=== PATIENT | male | born 1995 | race Asian ===

== ENCOUNTER 2019-03-25 23:59 | Emergency (ER) | payer OTHER ==
--- NOTE | 2019-03-26 02:05 | ED ---
Laceration/Wound HPI - HPI Summary HPI Summary: 23-year-old right hand dominant male with no significant past medical history reports the emergency department today after lacerating his right pointer finger on a knife. He endorses 2 out of 10 pain at the point the laceration. Laceration measures 2 cm in length by 3 mm in depth. He states he is up-to- date with his tetanus immunizations. He has full range of motion in his upper extremities bilaterally and is neurovascularly intact. Patient denies anticoagulation or bleeding disorders. Patient denies fever, chest pain, abdominal pain, shortness of breath accompanied urination, rash. - History of Current Complaint Stated Complaint: R POINTER LAC PER PT Time Seen by Provider: 03/26/19 01:45 Hx Obtained From: Patient Mechanism of Injury: Sharp/Blunt Trauma Onset/Duration: Sudden Onset Aggravating: Movement Timing: Constant Onset Severity: Moderate Current Severity: Moderate Pain Intensity: 6 Pain Scale Used: 0-10 Numeric Associated Signs & Symptoms: Pain - Allergy/Home Medications Allergies/Adverse Reactions: Allergies Allergy/AdvReac Type Severity Reaction Status Date / Time No Known Allergies Allergy Verified 03/26/19 00:07 PMH/Surg Hx/FS Hx/Imm Hx - Immunization History Immunizations Up to Date: Yes Infectious Disease History: No Infectious Disease History: Denies: Traveled Outside the [place] in Last 30 Days - Social History Alcohol Use: Rare Substance Use Type: Reports: None Smoking Status (MU): Never Smoked Tobacco Review of Systems Constitutional: Negative Eyes: Negative ENT: Negative Cardiovascular: Negative Respiratory: Negative Gastrointestinal: Negative Genitourinary: Negative Musculoskeletal: Negative Skin: Negative Neurological: Negative Psychological: Normal All Other Systems Reviewed And Are Negative: Yes Physical Exam - Summary Physical Exam Summary: Right upper extremities is neurovascularly intact and full range of motion. Radial pulses 2+ bilaterally with brisk capillary refill. Laceration is minor amount of bleeding. No evidence of foreign body. Wound is clean. Triage Information Reviewed: Yes Vital Signs On Initial Exam: Initial Vitals Temp Pulse Resp BP Pulse Ox 98.4 F 72 16 138/86 99 03/26/19 00:00 03/26/19 00:00 03/26/19 00:00 03/26/19 00:00 03/26/19 00:00 Vital Signs Reviewed: Yes Appearance: Positive: Well-Appearing, No Pain Distress, Well-Nourished Skin: Positive: Warm, Skin Color Reflects Adequate Perfusion Head/Face: Positive: Normal Head/Face Inspection Eyes: Positive: Normal, EOMI, [place] ENT: Positive: Hearing grossly normal Respiratory/Lung Sounds: Positive: Clear to Auscultation, Breath Sounds Present Cardiovascular: Positive: RRR, S1, S2 Abdomen Description: Positive: Nontender, Soft Bowel Sounds: Positive: Present Musculoskeletal: Positive: Strength/ROM Intact Neurological: Positive: Sensory/Motor Intact, Alert, Oriented to Person Place, Time, Normal Gait, Speech Normal Psychiatric: Positive: Normal AVPU Assessment: Alert Procedures - Sedation Patient Received Moderate/Deep Sedation with Procedure: No - Laceration/Wound Repair 1 Location: upper extremity Description: Linear Anesthesia: Local, 1.0% Length, Depth and Shape: 2 cm in length x 3 mm deep Betadine Prep?: No Irrigated w/ Saline (ccs): 200 Laceration/Wound Explored: clean, no foreign body removed Closure: Single Layer Suture Type: Nylon Number of Sutures: 2 - simple interrupted 4-0 nylon Layer Closure?: No Sterile Dressing Applied?: Yes Diagnostics - Vital Signs Vital Signs Temp Pulse Resp BP Pulse Ox 03/26/19 00:00 98.4 F 72 16 138/86 99 - Laboratory Lab Statement: Any lab studies that have been ordered have been reviewed, and results considered in the medical decision making process. Laceration Repair Course/Dx - Course Course Of Treatment: Patient was evaluated emergency department for right finger laceration measuring 2 cm in length by 3 mm in depth. His vital signs are stable and he is afebrile. He was neurovascularly intact and full range of motion in up-to-date with tetanus vaccination. Laceration repair was done using 3 cc of 1% lidocaine without epinephrine using local technique. Laceration was approximated using 2 simple interrupted sutures with 4-0 nylon. Patient tolerated procedure well with minimal blood loss. Dressing was applied to the wound and patient was placed in a splint and given instructions on how to care for his stitches and when to have them removed. Patient was told to return to the emergency department immediately if he developed any new or worsening symptoms - Differential Dx Differental Diagnoses: Abrasion, Avulsion, Foreign Body, Fracture, Laceration, Tendon Laceration - Clinical Impression Provider Diagnoses: Laceration of right index finger Discharge ED - Sign-Out/Discharge Documenting (check all that apply): Patient Departure - Discharge Plan Condition: Stable Disposition: HOME Patient Education Materials: Care For Your Stitches (ED), Laceration (ED) Referrals: [facility] - Liborio VÁSQUEZ [Primary Care Provider] - Additional Instructions: You are to follow up in 7 days with you primary care provider, or this emergency department for your sutures to be removed and to have your wound checked. Keep your wound and bandage dry for 24 hours. After 24 hours you may remove the bandage and gently clean the wound with warm soap and water. After cleaning pat the wound dry. Do this daily until complete healing of the wound. To facilitate wound healing be sure to remove any crusts to your wound and then apply ointment to the wound prior to bandage placement. After closure of the wound apply sunscreen to reduce scarring and protect your skin. If you notice any signs of infection including large areas of redness around the wound, red streaking from the wound, foul smelling or purulent drainage, or dehistance please return to the emergency department immediately. - Billing Disposition and Condition Condition: STABLE Disposition: Home
[2019-03-26 03:22] VITALS: BP 132/78
== END 2019-03-26 03:20 | disposition home or self-care (01) ==
LOC: ED 23:59
DX: S61.210A Laceration without foreign body of right index finger without damage to nail, initial encounter (principal); W26.0XXA Contact with knife, initial encounter; Y92.9 Unspecified place or not applicable
CPT/HCPCS: 12001; 99282